=== PATIENT | female | born 1995 | race Caucasian/White ===

== ENCOUNTER 2022-05-27 14:03 | Outpatient (CLI) | payer OTHER | END 2022-05-27 14:21 | disposition home or self-care (01) | LOC: LAB 14:03 | PROVIDERS: ATTEND Internal Medicine | DX: I10 Essential (primary) hypertension (principal); M54.50 Low back pain, unspecified; E03.9 Hypothyroidism, unspecified; E78.9 Disorder of lipoprotein metabolism, unspecified; E55.9 Vitamin D deficiency, unspecified; E11.51 Type 2 diabetes mellitus with diabetic peripheral angiopathy without gangrene; E11.9 Type 2 diabetes mellitus without complications; E66.8 Other obesity; G62.9 Polyneuropathy, unspecified; Z01.810 Encounter for preprocedural cardiovascular examination; Z12.11 Encounter for screening for malignant neoplasm of colon ==

== ENCOUNTER 2023-10-14 12:50 | Emergency (ER) | payer OTHER ==
[~2023-10-14] VITALS: Ht 157.5 cm; Wt 78.0 kg
[2023-10-14] MEDS ORDERED: KETOROLAC TROMETHAMINE 60 MG VIAL IM ONE (14:15)
[2023-10-14 14:53] LABS: HEMATOCRIT 38.2 % (36.0-45.00); HEMOGLOBIN 12.3 g/dL (12.0-15.00); MEAN CORPUSCULAR HEMOGLOBIN 20.1 pg (27.00-32.0); MEAN CORPUSCULAR HGB CONC 32.2 g/dl (32.0-36.0); PLATELET COUNT 267 K/uL (150-450); RED BLOOD COUNT 6.13 M/uL (4.00-6.00); RED CELL DISTRIBUTION WIDTH 16.3 % (11.5-14.5)
[2023-10-14 14:54] LABS: MEAN CELL VOLUME 62.4 fL (80.00-100.00)
[2023-10-14] MEDS ORDERED: CEFTRIAXONE SODIUM 1,000 MG VIAL IM ONE (15:15)
== END 2023-10-14 16:17 | disposition home or self-care (01) ==
LOC: ER 12:51
PROVIDERS: General Practice
DX: J02.0 Streptococcal pharyngitis (principal)

== ENCOUNTER 2023-11-04 14:08 | Emergency (ER) | payer OTHER ==
[~2023-11-04] VITALS: Ht 152.4 cm; Wt 69.9 kg
== END 2023-11-04 17:46 | disposition home or self-care (01) ==
LOC: ER 14:08
DX: N63.11 Unspecified lump in the right breast, upper outer quadrant (principal)